=== PATIENT | male | born 1940 | race American Indian/Alaskan Native ===

== ENCOUNTER 2016-08-27 11:18 | Observation (INO) | payer MEDICARE ==
[~2016-08-27 11:18] MED LIST: NACL P/F VIAL (10 ML) ONE; SODIUM CHLORIDE FLUSH SYRINGE 10 ML IV ONE; XYLOCAINE MPF 2% ONE
[2016-08-27] MEDS ORDERED: VANCOMYCIN/NS 1 GM/250 ML 1 GM/250 ML BAG IV NR (12:00)
[2016-08-27] MEDS ORDERED: NACL 0.45% 1000 ML 1,000 ML IV SCH (12:00)
[2016-08-27] MEDS ORDERED: NACL 0.9% 1 ML, VANCOMYCIN VIAL 1,000 MG IR ONE (12:30)
[2016-08-27 12:43] LABS: Basophils % (Auto) 1.2 % (0.0-1.8); Eosinophils % (Auto) 7.3 % (0.0-4.3); Hematocrit 34.7 % (35.5-45.6); Hemoglobin 11.7 gm/dl (11.8-15.2); Mean Corpuscular HGB Conc 34 % (32-34); Mean Corpuscular Hemoglobin 30 pg (28-32); Mean Corpuscular Volume 90 fl (84-94); Platelet Count 293 K/mm3 (140-440); Red Blood Count 3.86 M/mm3 (3.65-5.03); Red Cell Distribution Width 16.6 % (13.2-15.2); White Blood Count 3.5 K/mm3 (4.5-11.0)
--- NOTE | 2016-08-27 12:43 | Anesthesia Day of Surgery ---
Anesthesia Day of Surgery - Day of Surgery Patient Examined: Yes Patient H&P Reviewed: Yes Patient is NPO: Yes Beta Blockers: Yes
--- NOTE | 2016-08-27 12:44 | Anesthesia Consultation ---
Anesthesia Consult and Med Hx Date of service: 08/27/16 - Airway Anesthetic Teeth Evaluation: Good ROM Head & Neck: Adequate Mental/Hyoid Distance: Adequate Mallampati Class: Class II Intubation Access Assessment: Probably Good - Pulmonary Exam CTA: Yes - Cardiac Exam Cardiac Exam: RRR - Pre-Operative Health Status ASA Pre-Surgery Classification: ASA3 Proposed Anesthetic Plan: MAC - Pulmonary Hx Smoking: Yes (2 PK PER DAY 47 YRS; QUIT 20 YRS AGO) COPD: Yes (2013) Home Oxygen Therapy: No Hx Sleep Apnea: Yes (NOT USING CPAP, CANT BREATH WITH IT) - Cardiovascular System Hx Hypertension: Yes ([address] ALTAMIRANO;) Hx Coronary Artery Disease: Yes Hx Percutaneous Transluminal Coronary Angioplasty (PTCA): Yes (STENT X 1 10/2015) - Central Nervous System Hx Seizures: No CVA: No Hx Back Pain: Yes Hx Psychiatric Problems: No - Endocrine Hx Renal Disease: No Hx Cirrhosis: No Hx Thyroid Disease: No - Other Systems Hx Cancer: Yes (PROSTATE)
[2016-08-27 12:54] LABS: INR 1.11 (0.87-1.13)
[2016-08-27 13:01] LABS: BUN/Creatinine Ratio 14.28; Blood Urea Nitrogen 10 mg/dL (9-20); Calcium 8.9 mg/dL (8.4-10.2); Carbon Dioxide 20 mmol/L (22-30); Chloride 101.4 mmol/L (98-107); Glucose 85 mg/dL (75-100); Sodium 140 mmol/L (137-145)
[2016-08-27 13:19] LABS: Anion Gap 23 mmol/L; Potassium 4.3 mmol/L (3.6-5.0)
--- NOTE | 2016-08-27 14:12 | Admit Criteria Form ---
Admission Criteria Documentation: TELEMETRY CARE Telemetry Admission Guidelines (Place 'X' for any and all applicable criteria): Admission to telemetry [A] may be indicated for ANY ONE of the following(1)(2)(3 )(4)(5): [ ]I. Cardiac disease, including ANY ONE of the following (9)(10)(11)(12)(13 ): [ ]a) Postacute NM [ ]b) Low-risk patients with ST-segment elevation NM who have undergone successful percutaneous coronary intervention [ ]c) Unstable angina [ ]d) Suspected NM (until it is ruled out) [ ]e) Post cardiac surgery (first 48 to 72 hours unless complications occur) [ ]f) Acute arrhythmias (including significant tachycardia or bradycardia) [B] [ ]g) Firing of an implantable cardioverter defibrillator [C] [ ]h) Suspected pacemaker or implantable cardioverter defibrillator malfunction (10) [ ]i) New administration or adjustment of an antiarrhythmic drug [D ] [ ]j) Child admitted for acute congestive heart failure [ ]j) Long QT syndrome [ ]k) Advanced heart block (eg, second-degree Mobitz type II, third- degree heart block) [ ]l) Acute myocarditis or pericarditis [ ]m) Short-term (ambulatory or inpatient) monitoring after a cardiac procedure as indicated by ANY ONE of the following [E]: [ ]i) Electrophysiologic studies [ ]ii) Percutaneous coronary intervention with stent placement [ ]iii) Pacemaker placement with cardiac conduction defect [ ]iv) Implantable cardiac defibrillator placement [ ]II. Drug overdose or poisoning with substance that causes arrhythmias or QT prolongation (eg, phenothiazines, sympathomimetic agents, cyclic antidepressants, digitalis, antiarrhythmic drugs)(15) [ X]III. Short-term (ambulatory or inpatient) monitoring after therapeutic or diagnostic procedure requiring conscious sedation or anesthesia (eg, endoscopy, elective cardioversion) [ ]IV. Acute cerebrovascular even[F](18) [ ]V. Massive blood transfusion (eg, at least 10 units of packed red blood cells in 24 hours) [ ]. Variceal bleeding after endoscopy, sclerotherapy, or IV vasopressin [ ]VII. Uncorrected electrolyte abnormalities associated with an increased risk of dangerous arrhythmia [G]; examples include [ ]a) Hyperkalemia with attributable ECG changes [ ]b) Potassium greater than 6.5 mmol/L (mEq/L) in a patient without history of chronic renal disease [ ]c) Prolonged QT attributed to hypokalemia, hypomagnesemia, or hypocalcemia [ ]VIII.Unexplained syncope or other neurologic event suspected of being due to arrhythmia due to a finding that increases risk; examples include(19)(20)(21): [ ]a) High-risk ECG findings (eg, bifascicular block, bradycardia, abnormal QT interval, ventricular pre- excitation) [ ]b) History of previous syncope due to arrhythmia [ ]c) Abnormal ventricular function (eg, reduced ejection fraction ) [ ]d) Exertional or supine syncope [ ]e) Concerning syncope characteristics (eg, sudden loss of consciousness without prodrome) [ ]f) Family history of sudden [ ]g) Use of arrhythmogenic medication [ ]h) Suspected cardiac ischemia [ ]i) Known channelopathy (eg, long QT syndrome, Brugada syndrome, or catecholaminergic paroxysmal ventricular tachycardia) [ ]j) Known structural heart disease (eg, hypertrophic cardiomyopathy , severe valvular disease) [ ]k) Palpitations preceding syncope The original [employer] content created by [employer] has been revised. The portions of the content which have been revised are identified through the use of italic text or in bold, and [employer] has neither reviewed nor approved the modified material. All other unmodified content is copyright [employer]. Please see references footnoted in the original [employer] edition 2016 Admission Criteria Met: Yes
[2016-08-27] MEDS ORDERED: DIPRIVAN 10 MG/ML 1,000 MG/100 ML BOTTLE IV ONE (14:55)
[2016-08-27] MEDS ORDERED: VERSED IV ONE (14:56)
[2016-08-27] MEDS ORDERED: DILAUDID ONE (14:56)
[2016-08-27] MEDS ORDERED: NACL 0.9% 500 ML IR ONE ×2 (15:04→16:49)
[2016-08-27] MEDS ORDERED: MARCAINE 0.5% 60 ML INFILTRATI ONE (15:05)
[2016-08-27] MEDS ORDERED: NACL 0.9% 1000 ML 1,000 ML ONE (15:08)
[2016-08-27] MEDS: XYLOCAINE 1% 20 mL ONE ×2 (15:25→15:35)
[2016-08-27] MEDS ORDERED: VANCOMYCIN VIAL 1,000 MG in NACL 0.9% 1,000 ML IRRIGATION ONE (15:27)
--- NOTE | 2016-08-27 18:09 | Post Anesthesia Evaluation ---
- Post Anesthesia Evaluation Patient Participated: Yes Airway Patent: Yes Stable Respiratory Function: Yes Nausea/Vomiting: No Temp > 96.8F: Yes Pain Manageable: Yes Adequeate Hydration: Yes Anesthesia Complications: No Block Receding Appropriately: Not Applicable Patient on Ventilator: No
[2016-08-27] MEDS: NORCO 5/325 PO PRN (22:59)
[2016-08-28] MEDS ORDERED: LOPRESSOR PO ONE (02:50)
[2016-08-28] MEDS ORDERED: VANCOMYCIN/NS 1 GM/250 ML 1 GM/250 ML BAG IV SCH (03:30)
[2016-08-28] MEDS: NORCO 5/325 PO PRN (04:13)
--- NOTE | 2016-08-28 08:38 | XRay Report ---
PORTABLE CHEST INDICATION: Pacemaker postop. COMPARISON: 08/09/2016 FINDINGS: Portable, frontal chest radiograph demonstrate stable cardiomediastinal silhouette/mild cardiomegaly and mild aortic uncoiling. Mild left basilar atelectasis or scarring with left hemidiaphragm again slightly elevated, possibly slightly exaggerated due to poorer inspiration. Mild aortic knob calcifications. Stable left AICD with single ventricular lead and lower cervical fusion hardware. EKG leads. Stable thoracic spondylosis. CONCLUSION: No significant interval change or acute complication, allowing for the difference in technique, as described. Please correlate. Thank you for the opportunity to participate in this patient's care.
--- NOTE | 2016-08-28 09:58 | Short Stay Summary ---
Short Stay Documentation Date of service: 08/28/16 - History H&P: obtained from office - Allergies and Medications Current Medications: Allergies Penicillins Allergy (Verified 08/09/16 16:40) Hives Sulfa (Sulfonamide Antibiotics) Allergy (Verified 08/09/16 16:41) Hives Home Medications Medication Instructions Recorded Confirmed Last Taken Type Fluticasone/Salmeterol(Nf) [Advair 12 gm IH Q6H 08/05/14 08/27/16 08/26/16 History HFA 230-21 mcg] 2 puffs Tamsulosin [Flomax] 0.4 mg PO BID 08/05/14 08/27/16 08/26/16 History 0.4mg Tiotropium [Spiriva] 18 mcg IH QDAY 08/05/14 08/27/16 08/26/16 History 1, puff Albuterol Sulfate [Proair Hfa] 2 puff INHALATION QID 11/09/15 08/27/16 08/26/16 History 2 puffs Aspirin [Adult Low Dose Aspirin EC] 81 mg PO DAILY 11/09/15 08/27/16 08/26/16 History 81mg Multivit-Min/Iron Fum/Folic AC 1 each PO DAILY 11/09/15 08/27/16 08/26/16 History [Pdpvn-Tkeljyh-Ahaasjhr Tablet] 1 tab buPROPion XL [Wellbutrin Xl] 150 mg PO QAM 11/09/15 08/27/16 08/26/16 History 150mg AtorvaSTATin [Lipitor] 80 mg PO QHS 08/09/16 08/27/16 08/26/16 History 80mg Clopidogrel [Plavix] 75 mg PO DAILY 08/09/16 08/27/16 08/26/16 History 75mg Hydroxychloroquine Sulfate 200 mg PO DAILY 08/09/16 08/27/16 08/26/16 History [Hydroxychloroquine Sulfate] 200mg ISOSORBIDE MONOnitrate [Imdur ER] 30 mg PO DAILY 08/09/16 08/27/16 08/26/16 History 30mg Losartan [Cozaar] 100 mg PO DAILY 08/09/16 08/27/16 08/26/16 History 100mg Metoprolol [Lopressor TAB] 50 mg PO DAILY 08/09/16 08/27/16 08/26/16 History 50mg Pantoprazole [Protonix TAB] 40 mg PO DAILY 08/09/16 08/27/16 08/26/16 History 40mg Active Medications Acetaminophen/Hydrocodone Bitart ([place] 5/325) 1 each PO Q6H PRN PRN Reason: Pain, Moderate (4-6) Last Admin: 08/28/16 04:13 Dose: 1 each Sodium Chloride (Nacl 0.45% 1000 Ml) 1,000 mls @ 50 mls/hr IV DIRECT ELROY - Brief post op/procedure progress note Date of procedure: 08/27/16 Pre-op diagnosis: CMP Post-op diagnosis: same Anesthesia: GETA Surgeon: MICHELLE ARROYO Estimated blood loss: none Pathology: none Condition: stable - Hospital course Hospital course: Pt presented for scheduled AICD RV lead revision and successfully underwent revision per Dr. Arroyo on 08/27/2016. He was admitted for overnight observation. His post-procedure CXR revealed NAF; device interrogation this AM revealed normal device function. Left pectoralis AICD incision site pressure dressing removed and telfa and tegaderm dressing in place; site c/d/i with no evidence of bleeding or hematoma; left arm immobilizer in place. Pt has no complaints. at bedside. Pt is cleared for discharge today. May resume Plavix today per Dr. Arroyo. - Disposition Condition at discharge: Stable Disposition: DC-01 TO HOME OR SELFCARE - Discharge Diagnoses (1) ICD (implantable cardioverter-defibrillator) in place Status: Chronic (2) Cardiomyopathy Status: Chronic Qualifiers: Cardiomyopathy type: C Short Stay Discharge Plan Activity: other (as per discharge instructions) Diet: low fat, low cholesterol, low salt Wound: keep clean and dry, per your surgeon's advice, other (as per discharge instructions) Follow up with: ABBEY MADERA MD [Primary Care Provider] - 7 Days MICHELLE ARROYO MD [Staff Physician] - 7 Days
[2016-08-28] MEDS ORDERED: PROAIR IH ONE (10:19)
[2016-08-28] MEDS ORDERED: PROVENTIL IH ONE (11:30)
[2016-08-28 13:51] VITALS: BP 151/84
== END 2016-08-28 14:15 | disposition home or self-care (01) ==
LOC: 4A 11:18 → OPU 11:18 → 4A 12:47
PROVIDERS: ADMIT Internal Medicine Cardiovascular Disease; ATTEND Internal Medicine Cardiovascular Disease
DX: I42.9 Cardiomyopathy, unspecified (principal); J44.9 Chronic obstructive pulmonary disease, unspecified; I25.10 Atherosclerotic heart disease of native coronary artery without angina pectoris; I47.2 Ventricular tachycardia; I11.0 Hypertensive heart disease with heart failure; I50.22 Chronic systolic (congestive) heart failure; I51.7 Cardiomegaly; Z85.46 Personal history of malignant neoplasm of prostate; Z87.891 Personal history of nicotine dependence; Z98.61 Coronary angioplasty status; Z95.5 Presence of coronary angioplasty implant and graft
CPT/HCPCS: 33216; 33244; 36415; 71010; 80048; 85025; 85610; 85730; 93005; 93010; 94640; 96365; C1892; C1895; G0378; J1170; J2250; J2704; J3370; J7030

== ENCOUNTER 2020-11-16 07:06 | Day surgery (SDC) | payer MEDICARE ==
[2020-11-16] MEDS ORDERED: WATER FOR IRRIG STERILE 1,000 ML BOTTLE ONE (08:11)
[2020-11-16] MEDS ORDERED: WATER FOR IRRIG STERILE 250 ML BOTTLE IR ONE (08:11)
[2020-11-16] MEDS ORDERED: SODIUM CHLORIDE 0.9% 1000 ML 1,000 ML ONE (08:24)
--- NOTE | 2020-11-16 08:59 | Anesthesia Consultation ---
Anesthesia Consult and Med Hx Date of service: 11/16/20 - Airway Anesthetic Teeth Evaluation: Partials (upper and lower) - Pre-Operative Health Status ASA Pre-Surgery Classification: ASA4 Proposed Anesthetic Plan: MAC - Pulmonary Hx Smoking: Yes (2 PK PER DAY 47 YRS; QUIT 20 YRS AGO) Hx Asthma: Yes COPD: Yes (2013) Hx Sleep Apnea: Yes (uses CPAP) - Cardiovascular System Hx Hypertension: Yes ([address] ALTAMIRANO;) Hx Coronary Artery Disease: No Hx Heart Attack/AMI: No (normal LV function) Hx Percutaneous Transluminal Coronary Angioplasty (PTCA): Yes (STENT X 1 10/2015) Hx Pacemaker: Yes Hx Internal Defibrillator: Yes Hx Peripheral Vascular Disease: No - Central Nervous System Hx Neuromuscular Disorder: Yes (spinal stenosis with lower extremities weakness, wheelchair bound) Hx Seizures: No CVA: No Hx Back Pain: Yes Hx Psychiatric Problems: No - Endocrine Hx Renal Disease: Yes (left kidney resection) Hx Cirrhosis: No Hx Thyroid Disease: No - Other Systems Hx Alcohol Use: Yes Hx Cancer: Yes (PROSTATE seeds) - Additional Comments Anesthesia Medical History Comments: lupus
--- NOTE | 2020-11-16 09:16 | Anesthesia Day of Surgery ---
Anesthesia Day of Surgery - Day of Surgery Patient Examined: Yes Patient H&P Reviewed: Yes Patient is NPO: Yes Beta Blockers: Yes Cardiac Clearance: Yes
[2020-11-16] MEDS ORDERED: propofoL 200 MG/20 ML VIAL IV ONE (09:27)
[2020-11-16] MEDS ORDERED: LIDOCAINE MPF (2%) 20 MG/1 ML VIAL 5 ML ONE (09:27)
--- NOTE | 2020-11-16 10:13 | Operative Report ---
Operative Report Operative Report: DOS: 11/16/20 SURGEON: Alan An MD EGD REPORT PREOPERATIVE DIAGNOSIS and POSTOPERATIVE DIAGNOSIS: Anemia, abdominal pain ESTIMATED BLOOD LOSS: None DESCRIPTION OF PROCEDURE: A high-resolution pediatric colonoscope was passed through the oropharynx, esophagus, stomach, and second portion of duodenum. The scope was carefully withdrawn. Retroflexion was performed in the stomach. At the end of the procedure, the scope was cleaned using normal technique. Vital signs monitored continuously throughout. SEDATION: Provided by Anest[facility]iology Services. COMPLICATIONS: None. FINDINGS: * No gross lesions in the duodenum * No gross lesions in the stomach * 1 cm hiatal hernia * GE junction 40 cm from incisors * Remainder of exam unremarkable RECOMMENDATIONS: No clear source for anemia on the EGD and colonoscopy, patient should follow-up as an outpatient
--- NOTE | 2020-11-16 10:13 | Operative Report ---
Operative Report Operative Report: DOS: 11/16/20 SURGEON: Alan An MD COLONOSCOPY WITH SNARE POLYPECTOMY REPORT PREOPERATIVE AND POSTOPERATIVE DIAGNOSIS: Anemia DESCRIPTION OF PROCEDURE: The colonoscope was passed to the terminal ileum as identified by the ileal tissue. Scope was carefully withdrawn. Retroflexion was performed in the rectum. At the end of procedure, the scope was cleaned using normal technique. Vital signs monitored continuously throughout. SEDATION: Provided by [facility]. Quality of the prep was fair COMPLICATIONS: None. ESTIMATED BLOOD LOSS: Minimal FINDINGS: * Nonbleeding internal hemorrhoids * 6 cm sessile polyp in the sigmoid colon removed by cold snare polypectomy * Very large lipoma in the transverse colon approximately 7 cm in diameter * Moderate amount of thick stool in the cecum preventing adequate visualization of the cecum * Normal terminal ileum RECOMMENDATIONS: No clear source for the anemia on the EGD and colonoscopy, patient should return to the office as an outpatient for further evaluation Can consider CAT scan to confirm lipoma, though appearance was classic
--- NOTE | 2020-11-16 11:26 | Post Anesthesia Evaluation ---
- Post Anesthesia Evaluation Patient Participated: Yes Airway Patent: Yes Stable Respiratory Function: Yes Nausea/Vomiting: No Temp > 96.8F: Yes Pain Manageable: Yes Adequeate Hydration: Yes Anesthesia Complications: No
[2020-11-16 11:31] VITALS: BP 149/70
== END 2020-11-16 11:40 | disposition home or self-care (01) ==
LOC: GIO 07:06
PROVIDERS: ATTEND Student in an Organized Health Care Education/Training Program
DX: D64.9 Anemia, unspecified (principal); D12.5 Benign neoplasm of sigmoid colon; K44.9 Diaphragmatic hernia without obstruction or gangrene; K64.8 Other hemorrhoids; K63.89 Other specified diseases of intestine; I10 Essential (primary) hypertension; J44.9 Chronic obstructive pulmonary disease, unspecified; G47.33 Obstructive sleep apnea (adult) (pediatric); Z85.46 Personal history of malignant neoplasm of prostate; Z79.899 Other long term (current) drug therapy; Z88.0 Allergy status to penicillin; Z88.2 Allergy status to sulfonamides; Z95.5 Presence of coronary angioplasty implant and graft; Z95.810 Presence of automatic (implantable) cardiac defibrillator; Z98.890 Other specified postprocedural states
CPT/HCPCS: 43235; 45385; 88305; J2704; J7030